=== PATIENT | male | born 1970 | race Caucasian/White ===

== ENCOUNTER 2016-11-30 12:32 | Emergency (ER) | payer BC ==
[2016-11-30 13:45] VITALS: BP 150/93
--- NOTE | 2016-11-30 14:09 | UC ---
Skin Complaint HPI - HPI Summary HPI Summary: Pt c/o itchy areas on right medial forearm, that is blistered and is now says it is spreading to other arm and above right eyebrow. 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 . - History of Current Complaint Chief Complaint: UCRash Time Seen by Provider: 11/30/16 13:46 Stated Complaint: RASH Hx Obtained From: Patient Onset/Duration: Sudden Onset, Still Present, Worse Since - onset Skin Exposure Onset/Duration: Days Ago Timing: Constant Onset Severity: Mild Current Severity: Mild Location: Discrete Character: Pruritus, Raised Aggravating Factor(s): Touch Alleviating Factor(s): Unknown Associated Signs & Symptoms: Positive: Tenderness Related History: Possible Reaction to: Environmental Exposure - poison bhakti Similar Episode/Dx as: poison bhakti - Allergy/Home Medications Allergies/Adverse Reactions: Allergies Allergy/AdvReac Type Severity Reaction Status Date / Time No Known Allergies Allergy Verified 11/30/16 13:45 Home Medications: Home Medications Hydrocortisone 1% CREAM* [Hytone Cream 1%*] 1 applic TOPICAL QID PRN 11/30/16 [ History Confirmed 11/30/16] Review of Systems Constitutional: Negative Skin: Rash Eyes: Negative ENT: Negative Respiratory: Negative Cardiovascular: Negative Gastrointestinal: Negative Genitourinary: Negative Motor: Negative Neurovascular: Negative Musculoskeletal: Negative Neurological: Negative Psychological: Negative Is Patient Immunocompromised?: No All Other Systems Reviewed And Are Negative: Yes PMH/Surg Hx/FS Hx/Imm Hx Previously Healthy: Yes - Surgical History Surgical History: Yes Surgery Procedure, Year, and Place: urethral strictures - Family History Known Family History: Positive: Cardiac Disease - Social History Occupation: Employed Full-time Lives: With Family Alcohol Use: Occasionally Substance Use Type: None Smoking Status (MU): Never Smoked Tobacco Have You Smoked in the Last Year: No Physical Exam Triage Information Reviewed: Yes Appearance: Well-Appearing Vital Signs: Initial Vital Signs Temp 98.1 F 11/30/16 13:35 Pulse 80 11/30/16 13:35 Resp 18 11/30/16 13:35 BP 150/93 11/30/16 13:35 Eye Exam: Normal ENT Exam: Normal Neck exam: Normal Respiratory Exam: Normal Cardiovascular Exam: Normal Musculoskeletal Exam: Normal Neurological Exam: Normal Psychological Exam: Normal Skin Exam: Other - vessicualr rash right mid medial forearm. Skin: Positive: rashes Course/Dx - Differential Diagnoses - Skin Complaint Differential Diagnoses: Contact Dermatitis, Poison Bhakti - Diagnoses Provider Diagnoses: Poison Bhakti Discharge - Discharge Plan Condition: Stable Disposition: HOME Prescriptions: predniSONE TAB* [Deltasone TAB*] 30 mg PO DAILY #12 tab Patient Education Materials: Poison Bhakti (ED) Referrals: [facility] [Outside] - If Needed
== END 2016-11-30 14:14 | disposition home or self-care (01) ==
LOC: UCCORT 12:32
DX: L23.7 Allergic contact dermatitis due to plants, except food (principal)
CPT/HCPCS: 99202; G0463